=== PATIENT | female | born 1965 | race Caucasian/White ===

== ENCOUNTER 2020-07-18 15:38 | Emergency (ER) | payer BC, OTHER ==
[~2020-07-18] VITALS: Ht 154.9 cm; Wt 94.7 kg
[2020-07-18] MEDS ORDERED: ESTR1TAB PO (15:50)
[2020-07-18] MEDS ORDERED: PARO20TA4 PO (15:50)
[2020-07-18] MEDS ORDERED: hydrOXYzine 50 MG TAB PO STA (16:23)
[2020-07-18] MEDS ORDERED: HYDR-3363 PO (18:13)
[2020-07-18] MEDS ORDERED: hydrOXYzine 25 MG TAB PO STA (18:16)
[2020-07-18 18:38] VITALS: BP 111/74
== END 2020-07-18 18:44 | disposition home or self-care (01) ==
LOC: M ED 15:38
DX: F43.0 Acute stress reaction (principal); F32.9 Major depressive disorder, single episode, unspecified; Z88.0 Allergy status to penicillin